=== PATIENT | female | born 2000 | race Caucasian/White ===

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

== ENCOUNTER 2019-07-07 21:07 | Emergency (ER) | payer OTHER ==
[~2019-07-07] VITALS: Ht 165.1 cm; Wt 70.3 kg
== END 2019-07-07 22:31 | disposition home or self-care (01) ==
LOC: ER 21:07
DX: M25.462 Effusion, left knee (principal)
CPT/HCPCS: 76882; 99283-25

== ENCOUNTER → 2020-06-09 | Outpatient (CLI) | payer OTHER | END | disposition home or self-care (01) | LOC: LAB 16:08 → LAB SHORT 16:08 | DX: N39.0 Urinary tract infection, site not specified (principal); R31.9 Hematuria, unspecified | CPT/HCPCS: 87077; 87086; 87186 ==

== ENCOUNTER → 2023-03-20 | Outpatient (CLI) | payer OTHER | LOC: LAB 15:50 | DX: R23.3 Spontaneous ecchymoses (principal) ==

== ENCOUNTER → 2025-02-18 | Outpatient (CLI) | payer SELFPAY ==
[2025-02-19 13:10] LABS: Bacterial Vaginosis PCR Negative (NEGATIVE); Candida Group, PCR NOT DETECTED (NOT DETECT); Candida glabrata-krusei, PCR NOT DETECTED (NOT DETECT)
== END | disposition home or self-care (01) ==
LOC: LAB SHORT 18:17 → LAB 18:17
PROVIDERS: Obstetrics & Gynecology
DX: Z11.3 Encounter for screening for infections with a predominantly sexual mode of transmission (principal)
CPT/HCPCS: 81515